=== PATIENT | female | born 1990 | race Two or more races ===

== ENCOUNTER 2021-03-05 13:24 | Observation (INO) | payer MEDICAID ==
[~2021-03-05] VITALS: Ht 165.1 cm; Wt 90.7 kg
[2021-03-05] MEDS ORDERED: [UNRECOGNIZED DRUG - CODE] PO ×2 (15:44)
[2021-03-05] MEDS ORDERED: ONDA-144 PO ×2 (15:45)
[2021-03-05] MEDS ORDERED: [UNRECOGNIZED DRUG - OTHER] OR ×2 (15:46)
== END 2021-03-05 16:15 | disposition home or self-care (01) ==
LOC: LDRP 13:24
PROVIDERS: ADMIT Obstetrics & Gynecology Obstetrics; ATTEND Obstetrics & Gynecology Obstetrics
DX: O99.891 Other specified diseases and conditions complicating pregnancy (principal); M54.50 Low back pain, unspecified; O99.612 Diseases of the digestive system complicating pregnancy, second trimester; K30 Functional dyspepsia; O21.9 Vomiting of pregnancy, unspecified; Z3A.20 20 weeks gestation of pregnancy; Z79.899 Other long term (current) drug therapy
CPT/HCPCS: 59025; 81002; G0378

== ENCOUNTER 2021-03-09 14:50 | Observation (INO) | payer MEDICAID ==
[~2021-03-09 14:50] MED LIST: ONDA-144 PO; [UNRECOGNIZED DRUG - CODE] PO; [UNRECOGNIZED DRUG - OTHER] OR
[2021-03-09] MEDS ORDERED: NITR-87 PO ×4 (16:10→16:11)
== END 2021-03-09 16:25 | disposition home or self-care (01) ==
LOC: LDRP 14:50
PROVIDERS: ADMIT Obstetrics & Gynecology; ATTEND Obstetrics & Gynecology
DX: O36.8120 Decreased fetal movements, second trimester, not applicable or unspecified (principal); O62.9 Abnormality of forces of labor, unspecified; Z3A.20 20 weeks gestation of pregnancy
CPT/HCPCS: 59025; 81002; G0378

== ENCOUNTER → 2021-04-03 | Outpatient (CLI) | payer MEDICAID ==
[~2021-04-03] MED LIST changes: +NITR-87 PO
[2021-04-03 11:00] LABS: Basophils # (auto) 0 10 ^3/uL (0-0.2); Basophils % (auto) 0.2 % (0.0-2.0); Eosinophils # (auto) 0.3 10 ^3/uL (0-0.8); Eosinophils % (auto) 2.1 % (0.0-7.0); Hematocrit 33.8 % (36.0-46.0); Hemoglobin 11.3 g/dL (12.2-16.2); Lymphocytes # (auto) 2.6 10 ^3/uL (0.4-5.4); Lymphocytes % (auto) 20.4 % (10.0-50.0); Mean Corpuscular Hemoglobin 29.3 pg (28.0-32.0); Mean Corpuscular Hgb Conc. 33.5 g/dL (32.0-36.0); Mean Corpuscular Volume 87.4 fL (80.0-100.0); Monocytes # (auto) 0.6 10 ^3/uL (0-1.3); Monocytes % (auto) 4.9 % (0.0-12.0); Neutrophils # (auto) 9.3 10 ^3/uL (1.6-8.6); Neutrophils % (auto) 72.4 % (37.0-80.0); Red Blood Cells 3.86 10^6/uL (4.0-5.20); Red Cell Distribution Width 12.6 % (11.8-14.3); White Blood Cell 12.8 10^3/uL (4.4-10.8)
[2021-04-03 11:18] LABS: Amphetamine Screen, Urine NEGATIVE (NEGATIVE); Barbiturate Scree,Urine NEGATIVE (NEGATIVE); Benzodiazephine Screen, Urine NEGATIVE (NEGATIVE); Cannabinoid Screen, Urine NEGATIVE (NEGATIVE); Cocaine Screen, Urine NEGATIVE (NEGATIVE); Opiate Scree,Urine NEGATIVE (NEGATIVE); Phencyclidine Screen, Urine NEGATIVE (NEGATIVE)
[2021-04-04 07:06] LABS: RPR Non Reactive (Non Reactive)
== END | disposition home or self-care (01) ==
LOC: LAB 10:01
PROVIDERS: ATTEND Obstetrics & Gynecology
DX: Z31.430 Encounter of female for testing for genetic disease carrier status for procreative management (principal); Z72.51 High risk heterosexual behavior; Z34.80 Encounter for supervision of other normal pregnancy, unspecified trimester
CPT/HCPCS: 36415; 80307; 83036; 84112; 84144; 84702; 85025; 86592; 86703; 86765; 86850; 86900; 86901; 87086

== ENCOUNTER 2021-04-30 16:33 | Emergency (ER) | payer MEDICAID ==
[~2021-04-30] VITALS: Ht 160 cm; Wt 99.8 kg
[2021-04-30 17:15] VITALS: BP 126/83
== END 2021-04-30 17:49 | disposition left against medical advice (07) ==
LOC: EDBD 16:33 → EDUNIT# 16:33 → ER 16:33
DX: O26.892 Other specified pregnancy related conditions, second trimester (principal); R05.9 Cough, unspecified; R50.9 Fever, unspecified; Z79.899 Other long term (current) drug therapy; Z3A.00 Weeks of gestation of pregnancy not specified

== ENCOUNTER → 2021-05-25 | Outpatient (CLI) | payer MEDICAID ==
[2021-05-25 08:45] LABS: Basophils # (auto) 0 10 ^3/uL (0-0.2); Basophils % (auto) 0.2 % (0.0-2.0); Eosinophils # (auto) 0.2 10 ^3/uL (0-0.8); Eosinophils % (auto) 1.8 % (0.0-7.0); Hematocrit 32.4 % (36.0-46.0); Hemoglobin 11.2 g/dL (12.2-16.2); Lymphocytes # (auto) 3.2 10 ^3/uL (0.4-5.4); Lymphocytes % (auto) 29.4 % (10.0-50.0); Mean Corpuscular Hemoglobin 29.4 pg (28.0-32.0); Mean Corpuscular Hgb Conc. 34.6 g/dL (32.0-36.0); Mean Corpuscular Volume 85.1 fL (80.0-100.0); Monocytes # (auto) 0.8 10 ^3/uL (0-1.3); Monocytes % (auto) 7.7 % (0.0-12.0); Neutrophils # (auto) 6.7 10 ^3/uL (1.6-8.6); Neutrophils % (auto) 60.9 % (37.0-80.0); Nucleated Red Blood Cells % 0.1 %; Red Blood Cells 3.81 10^6/uL (4.0-5.20); Red Cell Distribution Width 13.6 % (11.8-14.3)
== END | disposition home or self-care (01) ==
LOC: LAB 07:48
PROVIDERS: ATTEND Obstetrics & Gynecology
DX: Z34.80 Encounter for supervision of other normal pregnancy, unspecified trimester (principal)
CPT/HCPCS: 36415; 82951; 85025; 86850

== ENCOUNTER → 2021-06-04 | Outpatient (CLI) | payer MEDICAID ==
[~2021-06-04] MED LIST changes: +PREN27TA7 OR
[2021-06-04 11:35] LABS: Basophils # (auto) 0 10 ^3/uL (0-0.2); Basophils % (auto) 0.2 % (0.0-2.0); Eosinophils # (auto) 0.2 10 ^3/uL (0-0.8); Eosinophils % (auto) 1.5 % (0.0-7.0); Hematocrit 33.8 % (36.0-46.0); Hemoglobin 11.5 g/dL (12.2-16.2); Lymphocytes % (auto) 26.2 % (10.0-50.0); Mean Corpuscular Hemoglobin 28.8 pg (28.0-32.0); Mean Corpuscular Hgb Conc. 34.1 g/dL (32.0-36.0); Mean Corpuscular Volume 84.5 fL (80.0-100.0); Monocytes # (auto) 0.9 10 ^3/uL (0-1.3); Monocytes % (auto) 7.7 % (0.0-12.0); Neutrophils # (auto) 7.4 10 ^3/uL (1.6-8.6); Neutrophils % (auto) 64.4 % (37.0-80.0); Red Blood Cells 4.01 10^6/uL (4.0-5.20); Red Cell Distribution Width 13.4 % (11.8-14.3); White Blood Cell 11.4 10^3/uL (4.4-10.8)
== END | disposition home or self-care (01) ==
LOC: LAB 10:20
PROVIDERS: ATTEND Obstetrics & Gynecology
DX: Z34.80 Encounter for supervision of other normal pregnancy, unspecified trimester (principal)
CPT/HCPCS: 36415; 85025; 86850; 86900; 86901

== ENCOUNTER 2021-06-06 13:34 | Observation (INO) | payer MEDICAID ==
[~2021-06-06 13:34] MED LIST changes: -PREN27TA7 OR
[2021-06-06] MEDS ORDERED: PREN27TA7 OR (14:49)
== END 2021-06-06 14:57 | disposition home or self-care (01) ==
LOC: LDRP 13:34
PROVIDERS: ADMIT Obstetrics & Gynecology; ATTEND Obstetrics & Gynecology
DX: O24.419 Gestational diabetes mellitus in pregnancy, unspecified control (principal); Z3A.33 33 weeks gestation of pregnancy
CPT/HCPCS: 59025; 76818; 81002; 82948; 82962; 94760; G0378

== ENCOUNTER 2021-06-13 10:12 | Observation (INO) | payer MEDICAID ==
[~2021-06-13 10:12] MED LIST changes: +PREN27TA7 OR
== END 2021-06-19 15:27 | disposition home or self-care (01) ==
LOC: LDRP 06-19 13:00
PROVIDERS: ADMIT Obstetrics & Gynecology; ATTEND Obstetrics & Gynecology
DX: O24.419 Gestational diabetes mellitus in pregnancy, unspecified control (principal); Z3A.35 35 weeks gestation of pregnancy
CPT/HCPCS: 59025; 76818; 81002; 82948; 82962; 94760; G0378

== ENCOUNTER 2021-06-26 09:31 | Observation (INO) | payer MEDICAID | END 2021-07-05 17:37 | disposition home or self-care (01) | LOC: LDRP 07-05 15:14 | PROVIDERS: ADMIT Obstetrics & Gynecology; ATTEND Obstetrics & Gynecology | DX: O24.419 Gestational diabetes mellitus in pregnancy, unspecified control (principal); O26.893 Other specified pregnancy related conditions, third trimester; H53.8 Other visual disturbances; Z3A.37 37 weeks gestation of pregnancy | CPT/HCPCS: 59025; 76818; 81002; 82962; 94760; G0378 ==

== ENCOUNTER 2021-07-12 10:30 | Observation (INO) | payer MEDICAID ==
[2021-07-12] MEDS ORDERED: ACCU-CHEK COMFORT CURVE STRIP VI ONE (19:15)
== END 2021-07-12 20:48 | disposition home or self-care (01) ==
LOC: LDRP 19:07
PROVIDERS: ADMIT Obstetrics & Gynecology; ATTEND Obstetrics & Gynecology
DX: O24.419 Gestational diabetes mellitus in pregnancy, unspecified control (principal); O62.9 Abnormality of forces of labor, unspecified; Z3A.38 38 weeks gestation of pregnancy
CPT/HCPCS: 59025; 76818; 81002; 82948; G0378; 82962

== ENCOUNTER → 2021-07-17 | Outpatient (CLI) | payer MEDICAID ==
[2021-07-17 13:35] LABS: Basophils # (auto) 0 10 ^3/uL (0-0.2); Basophils % (auto) 0.2 % (0.0-2.0); Eosinophils # (auto) 0.1 10 ^3/uL (0-0.8); Eosinophils % (auto) 1.3 % (0.0-7.0); Hematocrit 35.2 % (36.0-46.0); Hemoglobin 12.2 g/dL (12.2-16.2); Lymphocytes # (auto) 2.6 10 ^3/uL (0.4-5.4); Lymphocytes % (auto) 24.9 % (10.0-50.0); Mean Corpuscular Hemoglobin 28.6 pg (28.0-32.0); Mean Corpuscular Hgb Conc. 34.6 g/dL (32.0-36.0); Mean Corpuscular Volume 82.6 fL (80.0-100.0); Monocytes # (auto) 0.8 10 ^3/uL (0-1.3); Monocytes % (auto) 7.3 % (0.0-12.0); Neutrophils # (auto) 7.1 10 ^3/uL (1.6-8.6); Neutrophils % (auto) 66.3 % (37.0-80.0); Nucleated Red Blood Cells % 0.1 %; Red Blood Cells 4.26 10^6/uL (4.0-5.20); Red Cell Distribution Width 14.2 % (11.8-14.3); White Blood Cell 10.7 10^3/uL (4.4-10.8)
[2021-07-18 06:06] LABS: RPR Non Reactive (Non Reactive)
== END | disposition home or self-care (01) ==
LOC: LAB 10:51
PROVIDERS: ATTEND Obstetrics & Gynecology
DX: Z34.80 Encounter for supervision of other normal pregnancy, unspecified trimester (principal)
CPT/HCPCS: 36415; 83036; 84112; 85025; 86592; 87340

== ENCOUNTER 2021-07-18 15:24 | Inpatient (IN) | payer MEDICAID ==
[~2021-07-18] VITALS: Ht 162.6 cm; Wt 90.3 kg
[2021-07-25] MEDS ORDERED: LACT. RINGERS/OXYTOCIN 20UNITS 1,000 ML IV SCH (14:45)
[2021-07-25] MEDS ORDERED: LACT. RINGERS/OXYTOCIN 20UNITS 500 ML IV ONE ×2 (14:45→15:15)
[2021-07-25] MEDS ORDERED: PROMETHAZINE HCL 25 MG/ML 1ML IM PRN (14:45)
[2021-07-25] MEDS ORDERED: LIDOCAINE 2%HCL (LOCAL ANESTH.) INJ 10ml MDV IJ PRN (14:45)
[2021-07-25] MEDS ORDERED: BUTORPHANOL TARTRATE 2 MG/1 ML VIAL IV PRN ×2 (14:45)
[2021-07-25] MEDS ORDERED: TERBUTALINE SULFATE 1 MG/ML 1ML VIAL SC PRN (14:45)
[2021-07-25] MEDS ORDERED: PENICILLIN G POT 5MIL/D5 50ML 50 ML IV ONE (14:45)
[2021-07-25] MEDS ORDERED: miSOPROStol 50 MCG per PRE-CUT 1/2 TAB PO PRN (14:45)
[2021-07-25] MEDS ORDERED: PROMETHAZINE HCL 25 MG/ML 1ML IV PRN (14:45)
[2021-07-25 15:22] LABS: Amphetamine Screen, Urine NEGATIVE (NEGATIVE); Barbiturate Scree,Urine NEGATIVE (NEGATIVE); Benzodiazephine Screen, Urine NEGATIVE (NEGATIVE); Cannabinoid Screen, Urine NEGATIVE (NEGATIVE); Cocaine Screen, Urine NEGATIVE (NEGATIVE); Opiate Scree,Urine NEGATIVE (NEGATIVE); Phencyclidine Screen, Urine NEGATIVE (NEGATIVE)
[2021-07-25 15:28] LABS: Basophils # (auto) 0 10 ^3/uL (0-0.2); Basophils % (auto) 0.2 % (0.0-2.0); Eosinophils # (auto) 0.3 10 ^3/uL (0-0.8); Eosinophils % (auto) 2.8 % (0.0-7.0); Hematocrit 33.4 % (36.0-46.0); Hemoglobin 11.7 g/dL (12.2-16.2); Lymphocytes % (auto) 21.1 % (10.0-50.0); Mean Corpuscular Hemoglobin 28.7 pg (28.0-32.0); Mean Corpuscular Volume 81.9 fL (80.0-100.0); Monocytes # (auto) 0.8 10 ^3/uL (0-1.3); Monocytes % (auto) 8.3 % (0.0-12.0); Neutrophils # (auto) 6.3 10 ^3/uL (1.6-8.6); Neutrophils % (auto) 67.6 % (37.0-80.0); Nucleated Red Blood Cells % 0.1 %; Red Blood Cells 4.07 10^6/uL (4.0-5.20); Red Cell Distribution Width 14.3 % (11.8-14.3); White Blood Cell 9.3 10^3/uL (4.4-10.8)
[2021-07-25 15:39] LABS: Albumin 2.5 g/dL (3.4-5.0); BUN/Creatinine Ratio 16.1; Calcium 8.7 mg/dL (8.5-10.1)
[2021-07-25 15:42] LABS: Bilirubin, Total 0.2 mg/dL (0.2-1.0); Total Protein 6.5 g/dL (6.4-8.2)
[2021-07-25 15:44] LABS: Urine Bacteria NONE SEEN /hpf (None Seen); Urine Blood Negative /uL (Negative); Urine Mucus FEW (None Seen); Urine Specific Gravity 1.032 (1.001-1.035); Urine WBC 52 /hpf (0 - 5)
[2021-07-25 15:47] LABS: INR 0.98 (0.9-1.15); Partial Thromboplastin Time 28.5 sec (23.6-33.0)
[2021-07-25] MEDS: LACTATED RINGER'S 1,000 ML IV SCH ×2 (17:05→23:44)
[2021-07-25] MEDS ORDERED: INSULIN LISPRO (HUMAN) 100 UNITS/ML ML SC ONE (17:15)
[2021-07-25] MEDS ORDERED: ACCU-CHEK COMFORT CURVE STRIP VI SCH (18:00)
[2021-07-25] MEDS ORDERED: PENICILLIN G POTASSIUM 2,500,000 UNITS in D5W 5% 50 ML IV SCH (18:45)
[2021-07-25] MEDS: PENICILLIN G POTASSIUM 2,500,000 UNITS in D5W 5% 50 ML IV SCH (20:07)
[2021-07-25] MEDS ORDERED: ePHEDrine SULFATE 50 MG/ML AMP IV ONE (22:30)
[2021-07-25] MEDS ORDERED: fentaNYL CITRATE 100 MCG/2 ML VL IV ONE (22:30)
[2021-07-25] MEDS ORDERED: ROPIVACAINE HCL 200 ML EPI SCH ×2 (22:30→23:45)
[2021-07-25] MEDS ORDERED: NALOXONE HCL 0.4 MG/ML VIAL IV ONE (22:30)
[2021-07-26] MEDS: PENICILLIN G POTASSIUM 2,500,000 UNITS in D5W 5% 50 ML IV SCH ×3 (00:38→07:53)
[2021-07-26] MEDS ORDERED: ROPIVACAINE HCL 200 ML EPI SCH (01:00)
[2021-07-26] MEDS ORDERED: ONDANSETRON HCL 4 MG/2 ML VIAL IV PRN (03:00)
[2021-07-26 06:24] LABS: RPR Non Reactive (Non Reactive)
[2021-07-26] MEDS: LACTATED RINGER'S 1,000 ML IV SCH (08:12)
[2021-07-26] MEDS ORDERED: miSOPROStol 100 mcg TAB PR PRN (09:45)
[2021-07-26] MEDS ORDERED: CARBOPROST TROMETHAMINE 250 MCG/1ML VIAL IM PRN (09:45)
[2021-07-26] MEDS ORDERED: miSOPROStol 100 mcg TAB SL PRN (09:45)
[2021-07-26] MEDS ORDERED: ONDANSETRON ODT 4 MG TAB PO PRN (11:00)
[2021-07-26] MEDS: ACETAMINOPHEN 325 MG TAB PO PRN ×2 (11:29→19:13)
[2021-07-26] MEDS: DERMOPLAST 60ML BOTTLE TOP PRN (11:30)
[2021-07-26] MEDS: PHISODERM TOP SOLN 240ML BTL TOP PRN (11:30)
[2021-07-26] MEDS: WITCH HAZEL-GLYCERIN PAD TOP PRN (11:30)
[2021-07-26] MEDS: IBUPROFEN 600 MG TAB PO PRN ×2 (13:36→23:47)
[2021-07-26] MEDS: ceFAZolin 1GM/50ML 50 ML IV SCH ×2 (14:00→22:31)
[2021-07-26 15:30] VITALS: BP 144/80
[2021-07-26 17:44] VITALS: BP 142/90
[2021-07-26] MEDS ORDERED: RHO (D) IMMUNE GLOBULIN 300 MCG INJ IM ONE (17:45)
[2021-07-26 18:40] VITALS: BP 142/82
[2021-07-26] MEDS ORDERED: INFLUENZA QUAD 2021-2022 0.5 ML SYRG IM ONE (21:00)
[2021-07-26] MEDS ORDERED: DOCUSATE SOD 100 MG CAP PO SCH (22:00)
[2021-07-26 23:02] VITALS: BP 143/84
[2021-07-27 03:25] VITALS: BP 125/69
[2021-07-27] MEDS: ceFAZolin 1GM/50ML 50 ML IV SCH ×2 (06:35→14:00)
[2021-07-27 07:00] VITALS: BP 122/65
[2021-07-27] MEDS: WITCH HAZEL-GLYCERIN PAD TOP PRN ×2 (08:04→16:19)
[2021-07-27] MEDS: DERMOPLAST 60ML BOTTLE TOP PRN ×2 (08:04→16:19)
[2021-07-27] MEDS: PHISODERM TOP SOLN 240ML BTL TOP PRN ×2 (08:04→16:19)
[2021-07-27] MEDS: IBUPROFEN 600 MG TAB PO PRN ×2 (08:06→16:19)
[2021-07-27 08:07] VITALS: BP 122/65
[2021-07-27 11:00] VITALS: BP 129/68
[2021-07-27 15:00] VITALS: BP 122/65
== END 2021-07-27 17:34 | disposition home or self-care (01) | DRG 560 ==
LOC: LDRP 07-25 13:05 → OBSVTOIN 07-25 14:36
PROVIDERS: ADMIT Obstetrics & Gynecology Obstetrics; ATTEND Obstetrics & Gynecology Obstetrics
PROC: 3E0P7VZ Introduction of Hormone into Female Reproductive, Via Natural or Artificial Opening (ICD-10-PCS; 2021-07-25)
PROC: 3E0DXGC Introduction of Other Therapeutic Substance into Mouth and Pharynx, External Approach (ICD-10-PCS; 2021-07-25)
PROC: 10E0XZZ Delivery of Products of Conception, External Approach (ICD-10-PCS; principal; 2021-07-26)
PROC: 0KQM0ZZ Repair Perineum Muscle, Open Approach (ICD-10-PCS; 2021-07-26)
PROC: 3E0R3BZ Introduction of Anesthetic Agent into Spinal Canal, Percutaneous Approach (ICD-10-PCS; 2021-07-26)
PROC: 00HU33Z Insertion of Infusion Device into Spinal Canal, Percutaneous Approach (ICD-10-PCS; 2021-07-26)
PROC: 3E0234Z Introduction of Serum, Toxoid and Vaccine into Muscle, Percutaneous Approach (ICD-10-PCS; 2021-07-27)
DX: O69.81X0 Labor and delivery complicated by cord around neck, without compression, not applicable or unspecified (principal); Z37.0 Single live birth; O24.429 Gestational diabetes mellitus in childbirth, unspecified control; O13.4 Gestational [pregnancy-induced] hypertension without significant proteinuria, complicating childbirth; Z3A.39 39 weeks gestation of pregnancy; Z67.21 Type B blood, Rh negative; Z20.822 Contact with and (suspected) exposure to COVID-19; O36.63X0 Maternal care for excessive fetal growth, third trimester, not applicable or unspecified; O70.1 Second degree perineal laceration during delivery; O42.92 Full-term premature rupture of membranes, unspecified as to length of time between rupture and onset of labor
CPT/HCPCS: 36415; 59025; 59409; 62282; 80053; 80307; 81001; 81002; 82948; 82962; 84112; 85025; 85610; 85730; 86592; 86850; 86900; 86901; 87340; 90384; 90686; 94760; 96360; 96361; 96365; 96366; 96372; 96374; G0378; J0690; J2001; J2405; J2540; J2590; J7060

== ENCOUNTER → 2021-09-07 | Outpatient (CLI) | payer MEDICAID | END | disposition home or self-care (01) | LOC: LAB 10:28 | PROVIDERS: ATTEND Obstetrics & Gynecology | DX: O99.810 Abnormal glucose complicating pregnancy (principal) | CPT/HCPCS: 36415; 82951; 83036 ==

== ENCOUNTER → 2022-04-01 | Outpatient (CLI) | payer MEDICAID | END | disposition home or self-care (01) | LOC: LAB 14:34 | PROVIDERS: ATTEND Student in an Organized Health Care Education/Training Program | DX: R73.03 Prediabetes (principal) | CPT/HCPCS: 36415; 83036 ==

== ENCOUNTER → 2023-04-15 | Outpatient (CLI) | payer MEDICAID ==
[2023-04-15 16:15] LABS: Urine Bacteria FEW /hpf (None Seen); Urine Blood 1+ /uL (Negative); Urine Clarity HAZY (Clear); Urine Color Yellow (Yellow); Urine Mucus FEW (None Seen); Urine Protein, UAD TRACE (Negative); Urine Specific Gravity 1.031 (1.001-1.035); Urine Urobilinogen Normal (Negative); Urine WBC 10 /hpf (0 - 5); Urine pH 5.5 (5.0-8.0)
== END | disposition home or self-care (01) ==
LOC: LAB 15:51
PROVIDERS: ATTEND Obstetrics & Gynecology
DX: N39.0 Urinary tract infection, site not specified (principal)
CPT/HCPCS: 81001; 87086

== ENCOUNTER → 2023-06-11 | Outpatient (CLI) | payer MEDICAID ==
[2023-06-11 14:42] LABS: Basophils # (auto) 0.1 10 ^3/uL (0-0.2); Basophils % (auto) 0.7 % (0.0-2.0); Eosinophils # (auto) 0.2 10 ^3/uL (0-0.8); Eosinophils % (auto) 2.5 % (0.0-7.0); Hematocrit 40.1 % (36.0-46.0); Hemoglobin 13.7 g/dL (12.2-16.2); Lymphocytes % (auto) 34.2 % (10.0-50.0); Mean Corpuscular Hemoglobin 29.1 pg (28.0-32.0); Mean Corpuscular Hgb Conc. 34.2 g/dL (32.0-36.0); Mean Corpuscular Volume 85.2 fL (80.0-100.0); Monocytes # (auto) 0.6 10 ^3/uL (0-1.3); Monocytes % (auto) 6.5 % (0.0-12.0); Neutrophils # (auto) 4.9 10 ^3/uL (1.6-8.6); Neutrophils % (auto) 56.1 % (37.0-80.0); Red Cell Distribution Width 12.6 % (11.8-14.3); White Blood Cell 8.8 10^3/uL (4.4-10.8)
[2023-06-11 15:02] LABS: Alanine Aminotransferase 41 U/L (7-40); Albumin 4.7 g/dL (3.2-4.8); Alkaline Phosphatase 59 U/L (46-116); Anion Gap 5 (5-15); Aspartate Aminotransferase 26 U/L (13-40); BUN/Creatinine Ratio 14.9 (10.0-20.0); Blood Urea Nitrogen 10 mg/dL (9-23); Calcium 9.5 mg/dL (8.7-10.4); Carbon Dioxide 28 mmol/L (20-30); Chloride 104 mmol/L (98-107); Glucose 133 mg/dL (74-106); Sodium 137 mmol/L (136-145)
[2023-06-11 15:03] LABS: Bilirubin, Total 0.5 mg/dL (0.2-1.0); Total Protein 7.5 g/dL (5.7-8.2)
[2023-06-11 15:40] LABS: Urine Bacteria NONE SEEN /hpf (None Seen); Urine Blood 3+ /uL (Negative); Urine Clarity HAZY (Clear); Urine Color Yellow (Yellow); Urine Mucus FEW (None Seen); Urine Protein, UAD 1+ (Negative); Urine Specific Gravity 1.023 (1.001-1.035); Urine Urobilinogen Normal (Negative); Urine WBC 53 /hpf (0 - 5); Urine pH 5.5 (5.0-8.0)
[2023-06-11 16:11] LABS: LDL Cholesterol 205 mg/dL (< 100); Triglycerides 368 mg/dL (< 150)
[2023-06-11 16:13] LABS: Cholesterol 290 mg/dL (< 200); HDL Cholesterol 38 mg/dL (40-59)
== END | disposition home or self-care (01) ==
LOC: LAB 14:27
PROVIDERS: ATTEND Student in an Organized Health Care Education/Training Program
DX: R73.03 Prediabetes (principal); E66.01 Morbid (severe) obesity due to excess calories; L73.2 Hidradenitis suppurativa
CPT/HCPCS: 36415; 80053; 80061; 81001; 83036; 84439; 84443; 85025

== ENCOUNTER → 2024-05-17 | Outpatient (CLI) | payer MEDICAID ==
[~2024-05-17] MED LIST changes: +MECL12.595 PO; -[UNRECOGNIZED DRUG - CODE] PO
[2024-05-17 13:00] LABS: Basophils # (auto) 0 10 ^3/uL (0-0.2); Basophils % (auto) 0.2 % (0.0-2.0); Eosinophils # (auto) 0.3 10 ^3/uL (0-0.8); Eosinophils % (auto) 3.2 % (0.0-7.0); Hemoglobin 13.2 g/dL (12.2-16.2); Lymphocytes # (auto) 3.1 10 ^3/uL (0.4-5.4); Lymphocytes % (auto) 32.6 % (10.0-50.0); Mean Corpuscular Hemoglobin 28.8 pg (28.0-32.0); Mean Corpuscular Hgb Conc. 33.8 g/dL (32.0-36.0); Mean Corpuscular Volume 85.1 fL (80.0-100.0); Monocytes # (auto) 0.7 10 ^3/uL (0-1.3); Monocytes % (auto) 6.8 % (0.0-12.0); Neutrophils # (auto) 5.5 10 ^3/uL (1.6-8.6); Neutrophils % (auto) 57.2 % (37.0-80.0); Platelet Count (auto) 272 10^3/uL (140-450); Red Blood Cells 4.59 10^6/uL (4.0-5.20); White Blood Cell 9.6 10^3/uL (4.4-10.8)
[2024-05-17 13:25] LABS: Beta HCG, Quantitative 0.2 mIU/mL (1.5-4.2)
[2024-05-17 13:26] LABS: Albumin 4.5 g/dL (3.2-4.8); Alkaline Phosphatase 70 U/L (46-116); Anion Gap 5 (5-15); Bilirubin, Total 0.3 mg/dL (0.2-1.0); Blood Urea Nitrogen 12 mg/dL (9-23); Calcium 10.3 mg/dL (8.7-10.4); Carbon Dioxide 27 mmol/L (20-31); Chloride 104 mmol/L (98-107); Sodium 136 mmol/L (136-145); Total Protein 7.3 g/dL (5.7-8.2)
[2024-05-17 13:28] LABS: Alanine Aminotransferase 64 U/L (7-40); Aspartate Aminotransferase 45 U/L (13-40); Glucose 126 mg/dL (74-106)
[2024-05-17 13:30] LABS: Leuteinizing Hormone 2.4 IU/L; Prolactin 7.27 ng/mL (2.8-29.2); Thyroid Stimulating Hormone 1.45 uIU/mL (0.55-4.78)
[2024-05-17 13:58] LABS: Follicle Stimulating Hormone 2.43 IU/L (SEE BELOW); Free T4 (Free Thyroxine) 1.11 ng/dL (0.89-1.76)
[2024-05-21 00:06] LABS: Free Testosterone(Direct) 1.7 pg/mL (0.0-4.2)
== END | disposition home or self-care (01) ==
LOC: LAB 12:14
PROVIDERS: ATTEND Obstetrics & Gynecology
DX: E28.2 Polycystic ovarian syndrome (principal)
CPT/HCPCS: 36415; 80053; 80162; 82626; 83001; 83002; 83036; 84144; 84146; 84402; 84403; 84439; 84443; 84702; 85025

== ENCOUNTER 2024-12-29 13:30 | Outpatient (CLI) | payer MEDICAID ==
[2024-12-29 14:04] LABS: Hematocrit 33.2 % (36.0-46.0); Hemoglobin 11.1 g/dL (12.2-16.2); Mean Corpuscular Hemoglobin 28.4 pg (28.0-32.0); Mean Corpuscular Volume 84.7 fL (80.0-100.0); Nucleated Red Blood Cells % 0.0 %
[2024-12-29 14:43] LABS: Amphetamine Screen, Urine Neg (NEGATIVE); Barbiturate Scree,Urine Neg (NEGATIVE); Benzodiazephine Screen, Urine Neg (NEGATIVE); Cannabinoid Screen, Urine Neg (NEGATIVE); Cocaine Screen, Urine Neg (NEGATIVE); Opiate Scree,Urine Neg (NEGATIVE); Phencyclidine Screen, Urine Neg (NEGATIVE)
[2024-12-30 15:07] LABS: Chlamydia Trachomatis, NAA Negative (Negative); Neisseria gonorrhoeae, NAA Negative (Negative)
== END 2024-12-29 17:00 | disposition home or self-care (01) ==
LOC: LAB 13:30
DX: O23.40 Unspecified infection of urinary tract in pregnancy, unspecified trimester (principal); N39.0 Urinary tract infection, site not specified; Z11.3 Encounter for screening for infections with a predominantly sexual mode of transmission; Z20.2 Contact with and (suspected) exposure to infections with a predominantly sexual mode of transmission; Z3A.00 Weeks of gestation of pregnancy not specified
CPT/HCPCS: 36415; 80307; 83036; 84702; 85025; 86703; 86762; 86780; 86850; 86900; 86901; 87086; 87340

== ENCOUNTER 2025-03-02 15:48 | Observation (INO) | payer MEDICAID ==
--- NOTE | 2025-03-04 14:48 | DVHDS2 ---
Physician Discharge Progress N Final Diagnosis: gdm 28wks Operations or Procedures: Operations or Procedures nst reactive reviwed,sono Condition on Discharge: Good Disposition: Home Discharge Instructions: Diet: Consistent carbohydrate Activity: No Restrictions, As Tolerated Follow Up/Referral: as scheduled Medications: na Follow Up Care: Specialist: 2d Discharge Statement: "Patient was advised to return to the ER or call 911 if any headaches, dizziness, shortness of breath, chest pain, abdominal pain, bleeding, fevers, or worsening of medical condition. Patient was counseled about treatment plan, medications, possible side effects, patientverbalized understanding. All questions were answered to the best of my ability. This discharge took greater then 30 minutes in planning, reviewing documentation, counseling the patient, and discussing with other team members." Visit Coding OBGYN Date of Service: Mar 03, 2025 Billing Provider: HOMERO SIMEON DO HEALTH CARE CONSULTANT Common Visit Codes: 16408-[id number] OBS CARE (HIGH) HEALTH CARE CONSULTANT Procedure Codes: 90500-32- NON-STRESS TEST HOMERO SIMEON DO Mar 04, 2025 14:48
== END 2025-03-02 16:52 | disposition home or self-care (01) ==
LOC: LDRP 15:48 → UNDOADMOB 15:48 → LDRP 15:56 → UNDODISOB 16:52
PROVIDERS: ADMIT Obstetrics & Gynecology; ATTEND Obstetrics & Gynecology
DX: O26.893 Other specified pregnancy related conditions, third trimester (principal); R10.30 Lower abdominal pain, unspecified; Z3A.28 28 weeks gestation of pregnancy; Z98.890 Other specified postprocedural states
CPT/HCPCS: 59025; 81002; 94760; G0378

== ENCOUNTER 2025-03-08 06:09 | Observation (INO) | payer MEDICAID ==
--- NOTE | 2025-03-18 13:13 | DVHDS2 ---
Physician Discharge Progress N Final Diagnosis: gdm ,macroosmia 25 wks Operations or Procedures: Operations or Procedures nst,sono Condition on Discharge: Good Disposition: Home Discharge Instructions: Diet: Consistent carbohydrate Activity: No Restrictions, As Tolerated Medications: na Follow Up Care: Specialist: 1w Discharge Statement: "Patient was advised to return to the ER or call 911 if any headaches, dizziness, shortness of breath, chest pain, abdominal pain, bleeding, fevers, or worsening of medical condition. Patient was counseled about treatment plan, medications, possible side effects, patientverbalized understanding. All questions were answered to the best of my ability. This discharge took greater then 30 minutes in planning, reviewing documentation, counseling the patient, and discussing with other team members." Visit Coding OBGYN Date of Service: Mar 17, 2025 Billing Provider: HOMREO SIMEON DO BENEFITS SPECIALIST Common Visit Codes: 20316-[id number] OBS CARE (HIGH) BENEFITS SPECIALIST Procedure Codes: 31568-73- NON-STRESS TEST HOMERO SIMEON DO Mar 18, 2025 13:13
== END 2025-03-17 17:32 | disposition home or self-care (01) ==
LOC: UNDOADMOB 03-17 16:11 → LDRP 03-17 16:11
PROVIDERS: ADMIT Obstetrics & Gynecology; ATTEND Obstetrics & Gynecology
DX: O24.419 Gestational diabetes mellitus in pregnancy, unspecified control (principal); Z3A.25 25 weeks gestation of pregnancy; Z98.890 Other specified postprocedural states
CPT/HCPCS: 59025; 81002; 82948; 82962; 94760; G0378

== ENCOUNTER 2025-03-22 15:06 | Observation (INO) | payer MEDICAID ==
--- NOTE | 2025-03-23 05:27 | DVHDS2 ---
Physician Discharge Progress N Final Diagnosis: GDM31 WKS Operations or Procedures: Operations or Procedures NST REACTIVE REVIWED,SONO Condition on Discharge: Good Disposition: Home Discharge Instructions: Diet: Consistent carbohydrate Activity: No Restrictions, As Tolerated Medications: NA Follow Up Care: Specialist: 3D Discharge Statement: "Patient was advised to return to the ER or call 911 if any headaches, dizziness, shortness of breath, chest pain, abdominal pain, bleeding, fevers, or worsening of medical condition. Patient was counseled about treatment plan, medications, possible side effects, patientverbalized understanding. All questions were answered to the best of my ability. This discharge took greater then 30 minutes in planning, reviewing documentation, counseling the patient, and discussing with other team members." Visit Coding OBGYN Date of Service: Mar 22, 2025 Billing Provider: HOMERO SIMEON DO ENVIRONMENTAL ASSISTANT Common Visit Codes: [id number] INP/OBS CARE (HIGH) ENVIRONMENTAL ASSISTANT Procedure Codes: 01358-87- NON-STRESS TEST HOMERO SIMEON DO Mar 23, 2025 05:27
== END 2025-03-22 16:00 | disposition home or self-care (01) ==
LOC: LDRP 15:06 → UNDOADMOB 15:06 → LDRP 15:15 → UNDODISOB 16:00
PROVIDERS: ADMIT Obstetrics & Gynecology; ATTEND Obstetrics & Gynecology
DX: O24.419 Gestational diabetes mellitus in pregnancy, unspecified control (principal); Z3A.31 31 weeks gestation of pregnancy; Z98.890 Other specified postprocedural states
CPT/HCPCS: 59025; 81002; 82948; 82962; 94760; G0378

== ENCOUNTER 2025-03-28 06:56 | Observation (INO) | payer MEDICAID ==
--- NOTE | 2025-03-28 20:30 | DVH ---
BIOPHYSICAL PROFILE HISTORY: DM2, macro TECHNIQUE: Multiple transabdominal real-time grayscale sonographic images through the gravid uterus of the fetus with duplex Doppler color flow and M-mode spectral analysis FINDINGS: BIOPHYSICAL PROFILE: breathing score: 2 movement score: 2 tone score: 2 Quantitative KAT score: 2 (KAT: 20.92 cm, mvp: 7.26 cm.) Total score: 8/8 Single live fetus in cephalic presentation. heart rate 150 beats per minute. Anterior Grade 2 placenta without previa or abruption Single live fetus at 32 weeks 0 days Biophysical profile score 8/8 corresponding to an ANDRESSA of Possible nuchal cord IMPRESSION: 1. Biophysical profile score: 8/8. 2. KAT 20.92 cm, mvp; 7.26 cm recommend follow-up to exclude polyhydramnios. 3. Nuchal cord 4. FHR: 150 bpm
--- NOTE | 2025-03-28 22:10 | DVHDS2 ---
Discharge Summary Date of Admission Mar 28, 2025 at 19:13 Date of Discharge: Mar 28, 2025 Admitting Diagnosis 32 weeks DMA2 Macrosomia Wounds: none Labs/Diagnostic Data: Laboratory Results Test 03/28/25 19:37 POC Glucose 107 mg/dl (70-106) Brief Hx & Hospital Course: NST BPP reassuring Consults/Reason for consult none Operations or Procedures NST BPP Condition at Discharge: Good Final Diagnosis/Problems List DMA2 / Macrosomia Discharge Disposition: Home Discharge Instruct/Medications Diet: Consistent carbohydrate Activity: No Restrictions, As Tolerated Activity comment: kick counts labor precautions Follow Up/Referral: as scheduled Medications: resume home meds Scheduled Nitrofurantoin Monohydrate Mac (Macrobid), 100 MG PO BID, (Reported) Miscellaneous Medications L-Methylfolate (L-Methylfolate), 7.5 MG OR, (Reported) Meclizine HCl (Meclizine Hydrochloride), 12.5 MG PO, (Reported) Ondansetron (Zofran), 4 MG PO, (Reported) Vit W/ Ferrous Fumara (), 1 TAB OR, (Reported) Discharge Statement: "Patient was advised to return to the ER or call 911 if any headaches, dizziness, shortness of breath, chest pain, abdominal pain, bleeding, fevers, or worsening of medical condition. Patient was counseled about treatment plan, medications, possible side effects, patientverbalized understanding. All questions were answered to the best of my ability. This discharge took greater then 30 minutes in planning, reviewing documentation, counseling the patient, and discussing with other team members." ASSESSMENT ASSESSMENT Assessment Visit Coding OBGYN Date of Service: Mar 28, 2025 Billing Provider: BERNARDO EMERSON DO LAWN MOWER SHARPENER Common Visit Codes: 64565-ILQ/OBS SAME DATE (MOD), 18298-ATM/OBS SAME DATE (HIGH), 62574-KAA/OBS DISCH DAY <30MIN LAWN MOWER SHARPENER Procedure Codes: 71095-23- NON-STRESS TEST BERNARDO EMERSON DO Mar 28, 2025 22:10
== END 2025-03-28 20:45 | disposition home or self-care (01) ==
LOC: LDRP 19:13
PROVIDERS: ADMIT Obstetrics & Gynecology; ATTEND Obstetrics & Gynecology
DX: O24.419 Gestational diabetes mellitus in pregnancy, unspecified control (principal); O36.63X0 Maternal care for excessive fetal growth, third trimester, not applicable or unspecified; Z3A.32 32 weeks gestation of pregnancy; Z98.890 Other specified postprocedural states
CPT/HCPCS: 59025; 76819; 81002; 82948; 82962; 94760; A4649; G0378

== ENCOUNTER 2025-04-01 06:59 | Observation (INO) | payer MEDICAID ==
[~2025-04-01] VITALS: Ht 167.6 cm; Wt 101.2 kg
--- NOTE | 2025-04-02 20:16 | DVH ---
BIOPHYSICAL PROFILE HISTORY: DM2 TECHNIQUE: Multiple transabdominal real-time grayscale sonographic images through the gravid uterus of the fetus with duplex Doppler color flow and M-mode spectral analysis FINDINGS: BIOPHYSICAL PROFILE: breathing score: 2 movement score: 2 tone score: 2 Quantitative KAT score: 2 (KAT: 23.7 cm, mvp: 10.4.) Total score: 8/8 The cervix N/V Single live fetus in cephalic presentation. heart rate 143 beats per minute. Anterior Grade 2 placenta without previa or abruption Single live fetus at 32 weeks 5 days Biophysical profile score 8/8 corresponding to an ANDRESSA of May 23, 2025 Estimated weight not calculated g IMPRESSION: 1. Biophysical profile score: 8/8 2. FHR: 143 bpm 3. No other measurements given
[2025-04-02] MEDS: TERBUTALINE SULFATE 1 MG/ML 1ML VIAL SC SCH (21:03)
--- NOTE | 2025-04-03 08:51 | DVHDS2 ---
Physician Discharge Progress N Final Diagnosis: IUP 3rd trim, Diabetes Secondary Diagnosis: contractions without labor Operations or Procedures: Operations or Procedures NST/BPP, KAT all normal Terbutaline injection x 1 , resolution of contractions Condition on Discharge: Stable Disposition: Home Discharge Instructions: Diet: Regular Activity: No Restrictions, As Tolerated Follow Up/Referral: as scheduled Medications: NA Follow Up Care: Discharge Statement: "Patient was advised to return to the ER or call 911 if any headaches, dizziness, shortness of breath, chest pain, abdominal pain, bleeding, fevers, or worsening of medical condition. Patient was counseled about treatment plan, medications, possible side effects, patientverbalized understanding. All questions were answered to the best of my ability. This discharge took greater then 30 minutes in planning, reviewing documentation, counseling the patient, and discussing with other team members." Visit Coding OBGYN Date of Service: Apr 03, 2025 Billing Provider: BARRIE RIOJAS DO RECORDS SECTION SUPERVISOR Common Visit Codes: 24609-SHI/OBS SAME DATE (HIGH) RECORDS SECTION SUPERVISOR Procedure Codes: 62570-18- NON-STRESS TEST BARRIE RIOJAS DO Apr 03, 2025 08:51
== END 2025-04-02 21:34 | disposition home or self-care (01) ==
LOC: LDRP 04-02 19:24
PROVIDERS: ADMIT Obstetrics & Gynecology; ATTEND Obstetrics & Gynecology
DX: O24.419 Gestational diabetes mellitus in pregnancy, unspecified control (principal); O47.9 False labor, unspecified; Z3A.32 32 weeks gestation of pregnancy; Z98.890 Other specified postprocedural states
CPT/HCPCS: 59025; 76819; 81002; 82948; 82962; 94760; 96372; A4649; G0378; J3105

== ENCOUNTER 2025-04-05 16:00 | Observation (INO) | payer MEDICAID ==
[2025-04-05 17:34] LABS: Hematocrit 30.0 % (36.0-46.0); Hemoglobin 9.9 g/dL (12.2-16.2); Mean Corpuscular Hemoglobin 26.1 pg (28.0-32.0); Mean Corpuscular Volume 79.3 fL (80.0-100.0); Nucleated Red Blood Cells % 0.0 %
[2025-04-05 17:48] LABS: Albumin 3.9 g/dL (3.2-4.8); Alkaline Phosphatase 99 U/L (46-116); Anion Gap 10 (5-15); BUN/Creatinine Ratio 13.0 (10.0-20.0); Calcium 9.4 mg/dL (8.7-10.4); Carbon Dioxide 22 mmol/L (20-31); Chloride 104 mmol/L (98-107); Glucose 100 mg/dL (74-106); Potassium 4.2 mmol/L (3.5-5.1); Total Protein 6.9 g/dL (5.7-8.2); Uric Acid 4.1 mg/dL (3.1-7.8)
[2025-04-05 17:49] LABS: Alanine Aminotransferase < 9 U/L (7-40); Bilirubin, Total 0.4 mg/dL (0.2-1.0); Blood Urea Nitrogen 7 mg/dL (9-23); Sodium 136 mmol/L (136-145)
--- NOTE | 2025-04-05 17:50 | DVH ---
BIOPHYSICAL PROFILE HISTORY: macro/type 2 diabetes TECHNIQUE: Multiple transabdominal real-time grayscale sonographic images through the gravid uterus of the fetus with duplex Doppler color flow and M-mode spectral analysis FINDINGS: BIOPHYSICAL PROFILE: breathing score: 2 movement score: 2 tone score: 2 Quantitative KAT score: 2 (KAT: 20 cm, mvp: 6.7 cm.) Total score: 8/8 The cervix obscured by head Single live fetus in cephalic presentation. heart rate 130 beats per minute. Anterior Grade 1 placenta without previa or abruption Single live fetus at 33 weeks 1 day Biophysical profile score 8/8 corresponding to an ANDRESSA of 05/23/2025 Estimated weight not calculated g IMPRESSION: 1. Biophysical profile score: 8/8 2. FHR: 130 bpm
[2025-04-05 17:56] LABS: INR 1.04 (0.9-1.15); Partial Thromboplastin Time 27.8 SEC (24.5-34.5); Prothrombin Time 11.0 sec (9.3-11.8)
[2025-04-05 18:23] LABS: Urine Protein, UAD TRACE (Negative)
[2025-04-05 18:26] LABS: Protein, Urine 36.8 mg/dL (1-14)
--- NOTE | 2025-04-05 22:20 | DVHDS2 ---
Physician Discharge Progress N Final Diagnosis: testing for T2DM/macrosomia Secondary Diagnosis: ruled out preeclampsia Operations or Procedures: Operations or Procedures 35yo iup@33+wks, not on medications for T2DM, pt had 2+ proteinuria in the [facility] OB office today. +FM, Denies UCs/LOF/VB/HAMMER/vision changes/RUQ pain. VSS NST reactive per RN [facility]/PTL/PreE precautions reviewed Dr. tomlinson consulted, agrees with poc. Laboratory Tests Test 04/05/25 17:15 04/05/25 17:16 Range/Units Urine Color Yellow Yellow Urine Clarity Turbid H Clear Urine pH 6.0 5.0-9.0 Urine Specific [place] 1.023 1.001-1.035 Urine Protein Trace H Negative Urine Ketones 1+ H Negative Urine Blood Negative Negative /uL Urine Nitrite Negative Negative Urine Bilirubin Negative Negative Urine Urobilinogen Normal Negative mg/dL Urine Leukocyte Esterase 1+ Negative /uL Urine RBC 1 0 - 4 /hpf Urine Microscopic WBC 4 0-5 /HPF Urine Squamous Epithelial Cells Mod <5 /hpf Urine Bacteria Few H None Seen /hpf Urine Mucus Few None Seen Urine Creatinine 174.61 H 30.0-125.0 mg/dL Urine Protein/Creatinine Ratio 0.21 Urine Glucose Normal Normal mg/dL Urine Total Protein 36.8 H 1-14 mg/dL White Blood Count 8.6 4.4-10.8 10^3/uL Red Blood Count 3.78 L 4.0-5.20 10^6/uL Hemoglobin 9.9 L 12.2-16.2 g/dL Hematocrit 30.0 L 36.0-46.0 % Mean Corpuscular Volume 79.3 L 80.0-100.0 fL Mean Corpuscular Hemoglobin 26.1 L 28.0-32.0 pg Mean Corpuscular Hemoglobin Concent 32.9 32.0-36.0 g/dL Red Cell Distribution Width 15.2 H 11.8-14.3 % Platelet Count 279 140-450 10^3/uL Mean Platelet Volume 8.0 6.9-10.8 fL Neutrophils (%) (Auto) 68.7 37.0-80.0 % Lymphocytes (%) (Auto) 22.2 10.0-50.0 % Monocytes (%) (Auto) 7.5 0.0-12.0 % Eosinophils (%) (Auto) 1.4 0.0-7.0 % Basophils (%) (Auto) 0.2 0.0-2.0 % Neutrophils # (Auto) 5.9 1.6-8.6 10 ^3/uL Lymphocytes # (Auto) 1.9 0.4-5.4 10 ^3/uL Monocytes # (Auto) 0.6 0-1.3 10 ^3/uL Eosinophils # (Auto) 0.1 0-0.8 10 ^3/uL Basophils # (Auto) 0 0-0.2 10 ^3/uL Nucleated Red Blood Cells 0.0 % Prothrombin Time 11.0 9.3-11.8 sec Prothrombin Time INR 1.04 0.9-1.15 Activated Partial Thromboplast Time 27.8 24.5-34.5 SEC Sodium Level 136 136-145 mmol/L Potassium Level 4.2 3.5-5.1 mmol/L Chloride Level 104 98-107 mmol/L Carbon Dioxide Level 22 20-31 mmol/L Anion Gap 10 5-15 Blood Urea Nitrogen 7 L 9-23 mg/dL Creatinine 0.54 L 0.550-1.02 mg/dL Glomerular Filtration Rate Calc 125 >90 mL/min BUN/Creatinine Ratio 13.0 10.0-20.0 Serum Glucose 100 74-106 mg/dL Uric Acid 4.1 3.1-7.8 mg/dL Calcium Level 9.4 8.7-10.4 mg/dL Total Bilirubin 0.4 0.2-1.0 mg/dL Aspartate Amino Transferase (AST) 12 L 13-40 U/L Alanine Aminotransferase (ALT) < 9 7-40 U/L Alkaline Phosphatase 99 46-116 U/L Total Protein 6.9 5.7-8.2 g/dL Albumin 3.9 3.2-4.8 g/dL Other Interventions Other Interventions [place] [address] Ph: [phone] DIAGNOSTIC IMAGING Diagnostic Imaging Report : [id number] Signed PATIENT: JADIEL ESCALANTE ACCT: [id number] UNIT: [id number] : 1990 LOC: [facility] ROOM / BED: TRIAGE1 / A AGE / SEX: 35 / F ADM STATUS: ADM IN SERVICE 24 ORDERING PHYSICIAN: EMERITA OLIVEIRA CNM PROCEDURE(s): BPP - BIOPHYSICAL PROFILE REASON: macro/type 2 diabetes ORDER NUMBER(s): [id number], ACCESSION NUMBER(s): [id number] BIOPHYSICAL PROFILE HISTORY: macro/type 2 diabetes TECHNIQUE: Multiple transabdominal real-time grayscale sonographic images through the gravid uterus of the fetus with duplex Doppler color flow and M-mode spectral analysis FINDINGS: BIOPHYSICAL PROFILE: breathing score: 2 movement score: 2 tone score: 2 Quantitative KAT score: 2 (KAT: 20 cm, mvp: 6.7 cm.) Total score: 8/8 The cervix obscured by head Single live fetus in cephalic presentation. heart rate 130 beats per minute. Anterior Grade 1 placenta without previa or abruption Single live fetus at 33 weeks 1 day Biophysical profile score 8/8 corresponding to an ANDRESSA of 05/23/2025 Estimated weight not calculated g IMPRESSION: 1. Biophysical profile score: 8/8 2. FHR: 130 bpm ATED BY: SANFORD NIELSON Jr., DO DICTATED DATE/TIME: 04/05/251746 SIGNED BY: SANFORD NIELSON Jr., SIGNED DATE/TIME: 04/05/251746 CC: Condition on Discharge: Stable Disposition: Home Discharge Instructions: Diet: Consistent carbohydrate Activity: No Restrictions, As Tolerated Medications: see med list Follow Up Care: Specialist: f/u twice weekly Discharge Statement: "Patient was advised to return to the ER or call 911 if any headaches, dizziness, shortness of breath, chest pain, abdominal pain, bleeding, fevers, or worsening of medical condition. Patient was counseled about treatment plan, medications, possible side effects, patientverbalized understanding. All questions were answered to the best of my ability. This discharge took greater then 30 minutes in planning, reviewing documentation, counseling the patient, and discussing with other team members." Visit Coding OBGYN Date of Service: Apr 05, 2025 Billing Provider: EMERITA OLIVEIRA CNM SALVAGE MACHINE OPERATOR Common Visit Codes: 15644-AYHZZOG OBS CARE (HIGH) SALVAGE MACHINE OPERATOR Procedure Codes: 99047-00- NON-STRESS TEST EMERITA OLIVEIRA [facility] Apr 05, 2025 22:20
== END 2025-04-05 19:03 | disposition home or self-care (01) ==
LOC: UNDOADMOB 16:00 → LDRP 16:00 → UNDODISOB 19:03
PROVIDERS: ADMIT Obstetrics & Gynecology; ATTEND Obstetrics & Gynecology
DX: O24.419 Gestational diabetes mellitus in pregnancy, unspecified control (principal); R79.1 Abnormal coagulation profile; Z3A.33 33 weeks gestation of pregnancy; Z98.890 Other specified postprocedural states
CPT/HCPCS: 36415; 59025; 76819; 80053; 81001; 81002; 82570; 84156; 84550; 85025; 85610; 85730; 94760; A4649; G0378

== ENCOUNTER 2025-04-09 02:35 | Observation (INO) | payer MEDICAID ==
--- NOTE | 2025-04-09 21:08 | DVH ---
BIOPHYSICAL PROFILE HISTORY: GDMA2/Macro TECHNIQUE: Multiple transabdominal real-time grayscale sonographic images through the gravid uterus of the fetus with duplex Doppler color flow and M-mode spectral analysis FINDINGS: BIOPHYSICAL PROFILE: breathing score: 2 movement score: 2 tone score: 2 Quantitative KAT score: 2 (KAT: 27.5 Cm.) MVP: 9.7 cm Total score: 8 The cervix is not well-visualized Single live fetus in cephalic presentation. heart rate 134 beats per minute. Grade 1 anterior placenta without previa or abruption IMPRESSION: Biophysical profile score: 8/8. KAT of 27.5 cm and maximum vertical pocket of 9.7 cm
--- NOTE | 2025-04-10 15:50 | DVHDS2 ---
Discharge Summary Date of Admission Apr 09, 2025 at 19:28 Date of Discharge: Apr 09, 2025 Admitting Diagnosis Thirty-three week GDM A2 history of macrosomia here for routine NST BPP both performed both reassuring Wounds: None Labs/Diagnostic Data: Laboratory Results Test 04/09/25 21:29 POC Glucose 104 mg/dl (70-106) Brief Hx & Hospital Course: Patient here for routine NST BPPThirty-three week GDM A2 history of macrosomia here for routine NST BPP both performed both reassuring Consults/Reason for consult None Operations or Procedures NST BPP Condition at Discharge: Good Final Diagnosis/Problems List 33 week GDM A2 3-0 macrosomia Discharge Disposition: Home Discharge Instruct/Medications Diet: Consistent carbohydrate Activity: No Restrictions, As Tolerated Activity comment: Kick counts labor precautions Follow Up/Referral: As scheduled for GDM monitoring Scheduled Nitrofurantoin Monohydrate Mac (Macrobid), 100 MG PO BID, (Reported) Miscellaneous Medications L-Methylfolate (L-Methylfolate), 7.5 MG OR, (Reported) Meclizine HCl (Meclizine Hydrochloride), 12.5 MG PO, (Reported) Ondansetron (Zofran), 4 MG PO, (Reported) Vit W/ Ferrous Fumara (), 1 TAB OR, (Reported) Discharge Statement: "Patient was advised to return to the ER or call 911 if any headaches, dizziness, shortness of breath, chest pain, abdominal pain, bleeding, fevers, or worsening of medical condition. Patient was counseled about treatment plan, medications, possible side effects, patientverbalized understanding. All questions were answered to the best of my ability. This discharge took greater then 30 minutes in planning, reviewing documentation, counseling the patient, and discussing with other team members." ASSESSMENT ASSESSMENT Assessment Visit Coding OBGYN Date of Service: Apr 09, 2025 Billing Provider: BERNARDO EMERSON DO SILVER BRAZER Common Visit Codes: 94049-[id number] INP/OBS CARE(HIGH), 56924-DQN/OBS SAME DATE (MOD) SILVER BRAZER Procedure Codes: 09989-54- NON-STRESS TEST BERNARDO EMERSON DO Apr 10, 2025 15:50
== END 2025-04-09 22:08 | disposition home or self-care (01) ==
LOC: LDRP 19:28
PROVIDERS: ADMIT Obstetrics & Gynecology; ATTEND Obstetrics & Gynecology
DX: O24.419 Gestational diabetes mellitus in pregnancy, unspecified control (principal); Z3A.33 33 weeks gestation of pregnancy; Z98.890 Other specified postprocedural states
CPT/HCPCS: 59025; 76819; 81002; 82948; 82962; 94762; A4649; G0378

== ENCOUNTER 2025-04-16 02:10 | Observation (INO) | payer MEDICAID ==
[~2025-04-16] VITALS: Ht 167.6 cm; Wt 103.0 kg
--- NOTE | 2025-04-16 21:29 | DVH ---
BIOPHYSICAL PROFILE HISTORY: DMT2/POLY/ S/P FALL TECHNIQUE: Multiple transabdominal real-time grayscale sonographic images through the gravid uterus of the fetus with duplex Doppler color flow and M-mode spectral analysis FINDINGS: BIOPHYSICAL PROFILE: breathing score: 2 movement score: 2 tone score: 2 Quantitative KAT score: 2 (KAT: 32.4 cm, mvp: 11.5 cm.) Total score: 8/8 The cervix N/V Single live fetus in cephalic presentation. heart rate 144 beats per minute. Anterior Grade 1-2 placenta without previa or abruption Single live fetus at 34 weeks 5 days Biophysical profile score 8/8 corresponding to an ANDRESSA of 05/23/2025 Estimated weight not calculated g IMPRESSION: 1. Biophysical profile score: 8/8. 2. KAT = 32.4 cm consistent with polyhydramnios 3. FHR: 144 bpm 4. GA: 34 weeks 5 days; ANDRESSA: 05/23/2025
[2025-04-16] MEDS: LACTATED RINGER'S 1,000 ML IV ONE (22:05)
[2025-04-16] MEDS: ACETAMINOPHEN 500 MG TAB or CAP PO ONE (22:21)
--- NOTE | 2025-04-16 22:26 | DVHDS2 ---
Physician Discharge Progress N Final Diagnosis: IUP at 34w 5d DM2- Polyhydramnios Contraction Operations or Procedures: Operations or Procedures S: 35yo G2,[address] for surveillance due to DM2, polyhydramnios, and macrosomia. She reports she fell on her buttocks at home before coming for surveillance. Per pt, the chair she was sitting on broke. Feeling contractions and pain in vaginal area after the fall, took Tylenol 500mg normal movements, no leakage of fluid, vaginal bleeding, HAMMER, vision changes or epigastric pain. Reports she is not taking any medication, no Metformin, no vitamin, checks blood sugar sometime after breakfast and sometimes after lunch, not everyday. O: A&O x3 NAD. Afebrile, VSS Respiration: unlabored heart and lung sounds normal. Abdomen: Gravid, non-tender to palpation Extremities: No edema BPP 8/8; KAT 32.4cm, MVP: 11.5cm. No plcenta Abruption or previa noted on US EFM: FHR 120bpm, mod variability, accelerations present, no deceleration Tocometer: Contractions noted, same palpable and felt by patient NST reactive A: Contraction Macrosomia P: IV hydration with LR 1L Procardia 10mg PO Pt declined pelvic exam; hence unable to obtain wet mount Re-Assessment UCs persist P: Acetaminophen 1G PO 4hours after the home dose Terbutaline0.25mg subcutaneous Betamethasone 12mg i.m; Repeat in 24hrs Re-Assessment UCs resolved A: IUP at 34w DM2; non -compliant with management Macrosomia Polyhydramnios Contractions s/p Fall P: Return for Betamethasone in 24 hours Continue surveillance 2x/week Schedule OB follow appointment with OB provider immediately [facility], 3rd trimester emergency S&S, PTL & pre-eclampsia precautions reviewed with pt; advised to seek health care if any symptom including but not limited to any of the above. Condition on Discharge: Stable Disposition: Home Discharge Instructions: Diet: See Comment Diet comment: Follow diet as advised for DM2 and state Activity: No Restrictions, As Tolerated Follow Up/Referral: Return for Betamethasone in 24 hours Continue surveillance 2x/week Schedule OB follow appointment with OB provider immediately Medications: None Follow Up Care: Discharge Statement: > Return for Betamethasone in 24 hours > Continue surveillance 2x/week > Schedule OB follow appointment with OB provider immediately > [facility], 3rd trimester emergency S&S, PTL & pre-eclampsia precautions reviewed with pt; advised to seek health care if any symptom including but not limited to any of the above. "Patient was advised to return to the ER or call 911 if any headaches, dizziness, shortness of breath, chest pain, abdominal pain, bleeding, fevers, or worsening of medical condition. Patient was counseled about treatment plan, medications, possible side effects, patientverbalized understanding. All questions were answered to the best of my ability. This discharge took greater then 30 minutes in planning, reviewing documentation, counseling the patient, and discussing with other team members." Visit Coding OBGYN Date of Service: Apr 16, 2025 Billing Provider: YUE KLEIN CNM ELECTROMECHANICAL ASSEMBLER Common Visit Codes: 63761-OQI/OBS SAME DATE (HIGH) ELECTROMECHANICAL ASSEMBLER Procedure Codes: 95972-52- NON-STRESS TEST YUE KLEIN CNM Apr 16, 2025 22:26
[2025-04-16] MEDS: NIFEdipine 10 MG CAP PO ONE (23:04)
[2025-04-17] MEDS: TERBUTALINE SULFATE 1 MG/ML 1ML VIAL SC SCH (00:27)
[2025-04-17] MEDS: BETAMETHASONE ACET (30mg/5ml) 5ml Vial 6mg/ml IM SCH (01:34)
== END 2025-04-17 01:42 | disposition home or self-care (01) ==
LOC: LDRP 20:13
PROVIDERS: ADMIT Obstetrics & Gynecology; ATTEND Obstetrics & Gynecology
DX: O24.913 Unspecified diabetes mellitus in pregnancy, third trimester (principal); O36.63X0 Maternal care for excessive fetal growth, third trimester, not applicable or unspecified; O40.3XX0 Polyhydramnios, third trimester, not applicable or unspecified; O60.03 Preterm labor without delivery, third trimester; Z3A.34 34 weeks gestation of pregnancy
CPT/HCPCS: 59025; 76819; 81002; 82948; 82962; 94760; 96360; 96361; 96372; A4649; G0378; J0702; J3105

== ENCOUNTER 2025-04-18 00:34 | Observation (INO) | payer MEDICAID ==
[~2025-04-18] VITALS: Ht 167.6 cm; Wt 103.0 kg
[2025-04-18 01:18] LABS: Hematocrit 27.4 % (36.0-46.0); Hemoglobin 9.3 g/dL (12.2-16.2); Mean Corpuscular Hemoglobin 26.0 pg (28.0-32.0); Mean Corpuscular Volume 76.4 fL (80.0-100.0); Nucleated Red Blood Cells % 0.1 %
[2025-04-18] MEDS: BETAMETHASONE ACET (30mg/5ml) 5ml Vial 6mg/ml IM ONE (01:19)
[2025-04-18 01:33] LABS: INR 1.01 (0.9-1.15); Partial Thromboplastin Time 26.5 SEC (24.5-34.5); Prothrombin Time 10.7 sec (9.3-11.8)
--- NOTE | 2025-04-18 02:09 | DVHDS2 ---
Physician Discharge Progress N Final Diagnosis: IUP at 35w0d Gestational diabetes vs Type 2 diabetes Secondary Diagnosis: NST 2nd dose of betamethasone Operations or Procedures: Operations or Procedures SUBJECTIVE Hilaria Bloom is a 35 yo with IUP at 35w0d presenting for scheduled NST and 2nd dose of betamethasone Denies feeling UCs, vaginal bleeding, or leaking fluid. Endorses positive movement. States she has been "doing well" with regulating her blood sugar. She generally takes her blood sugar a couple hours after eating. She was on Ozempic prior to the , but then stopped when she became . EDC: 05/23/2025 Ob Hx: x1 Med Hx: Had diabetes prior to the Surg Hx: denies Review of Systems: Neuro: No complaints Heart: No complaints Lungs: No complaints GI: No complaints : No complaints Skin: No complaints Extremities: No complaints OBJECTIVE VSS FHR: Baseline: 140 with change to 135 Variability: Moderate Accelerations: Present Decelerations: Absent Category: 1 UCs: none noted Neuro: A&O x4. No apparent distress. Affect appropriate Heart: Regular rate and rhythm Lungs: Clear bilaterally GI: Gravid. No tenderness Skin: Dry and intact. No rashes or lesions Hgb: 9.3 A1C: 6.3 ASSESSMENT 35 yo at 35w0d Category 1 Tracing Gestational diabetes vs Type 2 diabetes Polyhydramnios Anemia PLAN -Discussed anemia with patient. Reviewed ways to increase iron in the diet and recommended patient begin an iron supplement as soon as possible. Discussed proper administration of iron supplementation and risks of anemia in and for . Patient says she will start taking iron -Discussed labor precautions and kick counts. Answered all patient questions and concerns. Patient verbalizes understanding. -Appt with Dr. Urbina on Thursday 04/19 @ 0900. Discussed that a higher level of care may be indicated r/t noncompliance with blood sugar management and growth. Patient states that she is OK with transferring to a different hospital and provider because she wants to do what is best for the baby. Patient may not be able to get to appt until 1pm, but is going to call office today to discuss. Condition on Discharge: Good Disposition: Home Discharge Instructions: Diet: Consistent carbohydrate Activity: No Restrictions, As Tolerated Follow Up/Referral: Appt on 04/19 @ 0900 Medications: Take iron supplement in addition to pnv Follow Up Care: Discharge Statement: "Patient was advised to return to the ER or call 911 if any headaches, di zziness, shortness of breath, chest pain, abdominal pain, bleeding, fevers, or worsening of medical condition. Patient was counseled about treatment plan, medications, possible side effects, patientverbalized understanding. All questions were answered to the best of my ability. This discharge took greater then 30 minutes in planning, reviewing documentation, counseling the patient, and discussing with other team members." Visit Coding OBGYN Date of Service: Apr 18, 2025 Billing Provider: RIMA HAMPTON CNM APPLIANCE [employer]ER Common Visit Codes: 04066-[id number] OBS CARE (HIGH) APPLIANCE FIXER Procedure Codes: 69092-96- NON-STRESS TEST RIMA HAMPTON CNM Apr 18, 2025 02:08
== END 2025-04-18 02:04 | disposition home or self-care (01) ==
LOC: LDRP 00:34
PROVIDERS: ADMIT Obstetrics & Gynecology; ATTEND Obstetrics & Gynecology
DX: O40.3XX0 Polyhydramnios, third trimester, not applicable or unspecified (principal); O24.913 Unspecified diabetes mellitus in pregnancy, third trimester; O99.013 Anemia complicating pregnancy, third trimester; D64.9 Anemia, unspecified; R79.1 Abnormal coagulation profile; Z3A.35 35 weeks gestation of pregnancy; Z98.890 Other specified postprocedural states; Z79.899 Other long term (current) drug therapy
CPT/HCPCS: 36415; 59025; 81002; 82948; 82962; 83036; 85025; 85610; 85730; 86780; 86803; 94762; 96372; A4649; G0378